=== PATIENT | female | born 1955 | race Caucasian/White ===

== ENCOUNTER 2019-10-15 08:27 | Observation (INO) ==
[~2019-10-15 08:27] MED LIST: Bacitracin 50,000 UNIT, Polymyxin B Sulfate 500,000 UNIT, Sodium Chloride IRRigation 1,... IR ONE
[2019-10-15] MEDS ORDERED: Ondansetron 4 MG/2 ML VIAL IVP ONE (08:56)
[2019-10-15] MEDS ORDERED: *HR* Promethazine 25 MG/ML VIAL IVP PRN (08:56)
[2019-10-15] MEDS ORDERED: *HR* HYDROmorphone PF 0.5 MG/0.5 ML SYRINGE IVP PRN (08:56)
[2019-10-15] MEDS ORDERED: *HR* OxyCODONE Immed Rel 5 MG TABLET PO PRN (08:56)
[2019-10-15] MEDS ORDERED: Acetaminophen IV 1,000 MG/100 ML INFUS..BTL IVPB ONE (08:57)
[2019-10-15] MEDS ORDERED: CeFAZolin Syr 2,000MG/20 ML 2,000 MG/20 ML SYRINGE IVPB ONE (09:17)
[2019-10-15] MEDS ORDERED: Ringers Solution, Lactated 1,000 ML IVC SCH (09:30)
[2019-10-15] MEDS ORDERED: *HR* Phenylephrine 10 MG/ML VIAL ONE (09:37)
[2019-10-15] MEDS ORDERED: *HR* Propofol 200 MG/20 ML VIAL IVP ONE (09:37)
[2019-10-15] MEDS ORDERED: *HR* Succinylcholine 200 MG/10 ML VIAL IVP ONE (09:37)
[2019-10-15] MEDS ORDERED: *HR* FentaNYL (PF) 100 MCG/2 ML VIAL ONE (09:37)
[2019-10-15] MEDS ORDERED: *HR* Midazolam HCl 2 MG/2 ML VIAL ONE (09:37)
[2019-10-15] MEDS ORDERED: *HR* Remifentanil 1 MG VIAL IVP ONE (09:37)
[2019-10-15] MEDS ORDERED: Lidocaine -MPF 2% 2 ML VIAL ONE ×2 (09:37)
[2019-10-15] MEDS ORDERED: *HR* Rocuronium Bromide 50 MG/5 ML VIAL ONE (09:39)
[2019-10-15] MEDS ORDERED: Acetaminophen IV 1,000 MG/100 ML INFUS..BTL ONE (10:12)
[2019-10-15] MEDS ORDERED: Ondansetron 4 MG/2 ML VIAL ONE (12:33)
[2019-10-15] MEDS ORDERED: Dexamethasone 4 MG/ML VIAL ONE (12:33)
[2019-10-15] MEDS ORDERED: Ondansetron 4 MG/2 ML VIAL IVP PRN (14:08)
[2019-10-15] MEDS ORDERED: Scopolamine Patch 1.5 MG PATCH.TD72 TD PRN (14:08)
[2019-10-15] MEDS ORDERED: Acetaminophen 325 MG TABLET PO PRN (14:08)
[2019-10-15] MEDS ORDERED: Naloxone 0.4 MG/ML INJ IVP PRN (14:08)
[2019-10-15] MEDS: *HR* HYDROcodone/Acet 5/325 mg TABLET PO PRN ×2 (16:00→23:50)
[2019-10-15] MEDS: Ringers Solution, Lactated 1,000 ML IVC SCH (16:00)
[2019-10-15] MEDS: ceFAZolin 2,000 MG in 0.9 % Sodium Chloride 100 ML IVPB SCH (17:06)
[2019-10-15] MEDS: carvediloL 6.25 MG TABLET PO SCH (17:08)
[2019-10-15] MEDS: Acetaminophen/Butalbital/CaffeineTABLET PO PRN (20:14)
[2019-10-16] MEDS: *HR* LORazepam 0.5 MG TABLET PO PRN ×3 (02:12→21:13)
[2019-10-16] MEDS: Ringers Solution, Lactated 1,000 ML IVC SCH (02:12)
[2019-10-16] MEDS: ceFAZolin 2,000 MG in 0.9 % Sodium Chloride 100 ML IVPB SCH (02:21)
[2019-10-16] MEDS: Acetaminophen/Butalbital/CaffeineTABLET PO PRN ×4 (02:24→21:13)
[2019-10-16] MEDS: carvediloL 6.25 MG TABLET PO SCH ×2 (08:41→16:41)
[2019-10-16] MEDS: *HR* OxyCODONE Immed Rel 5 MG TABLET PO PRN ×4 (08:41→21:05)
[2019-10-16] MEDS: Loratadine 10 MG TABLET PO SCH (08:42)
[2019-10-16] MEDS: lisinopriL 5 MG TABLET PO SCH (08:43)
[2019-10-17] MEDS: *HR* HYDROcodone/Acet 5/325 mg TABLET PO PRN ×2 (00:09→20:21)
[2019-10-17] MEDS: *HR* OxyCODONE Immed Rel 5 MG TABLET PO PRN ×4 (02:30→17:42)
[2019-10-17] MEDS: Acetaminophen/Butalbital/CaffeineTABLET PO PRN ×3 (05:24→17:45)
[2019-10-17] MEDS: carvediloL 6.25 MG TABLET PO SCH ×2 (07:38→17:42)
[2019-10-17] MEDS: lisinopriL 5 MG TABLET PO SCH (07:38)
[2019-10-17] MEDS: Loratadine 10 MG TABLET PO SCH (07:39)
[2019-10-17] MEDS: *HR* LORazepam 0.5 MG TABLET PO PRN (20:21)
[2019-10-18] MEDS: *HR* OxyCODONE Immed Rel 5 MG TABLET PO PRN ×2 (00:55→08:44)
[2019-10-18] MEDS: Acetaminophen/Butalbital/CaffeineTABLET PO PRN ×2 (00:56→08:45)
[2019-10-18] MEDS: *HR* HYDROcodone/Acet 5/325 mg TABLET PO PRN (03:57)
[2019-10-18] MEDS: lisinopriL 5 MG TABLET PO SCH (08:44)
[2019-10-18] MEDS: carvediloL 6.25 MG TABLET PO SCH (08:44)
[2019-10-18 11:43] VITALS: BP 107/73
== END 2019-10-18 16:31 | disposition home health service (06) ==
LOC: 3NENU 08:27 → SAMDAY 08:27 → 3NENU 14:19
PROVIDERS: ADMIT Orthopaedic Surgery Orthopaedic Surgery of the Spine; ATTEND Orthopaedic Surgery Orthopaedic Surgery of the Spine

== ENCOUNTER 2019-12-07 11:13 | Inpatient (IN) ==
[2019-12-07] MEDS ORDERED: Ondansetron 4 MG/2 ML VIAL IVP ONE (11:49)
[2019-12-07] MEDS ORDERED: *HR* HYDROmorphone (PF) 1 MG/ML SYRINGE IVP ONE ×2 (11:49→13:30)
[2019-12-07 12:54] LABS: Hematocrit 33.9 % (35.3-44.9); Hemoglobin 10.8 g/dL (11.5-15.4); Mean Corpuscular HGB Conc 31.9 g/dL (31.6-35.5); Mean Corpuscular Hemoglobin 31.7 pg (28.0-33.3); Mean Corpuscular Volume 99.4 fL (83.0-100.0); Mean Platelet Volume 10.2 fL (9.4-12.4); Platelet Count 201 K/mcL (140-400); Red Blood Count 3.41 M/mcL (3.82-4.97); Red Cell Distribution Width 13.3 % (11.5-14.5); White Blood Count 9.1 K/mcL (4.3-11.1)
[2019-12-07 13:01] LABS: Prothrombin Time 11.9 Seconds (9.4-12.1)
[2019-12-07 13:04] LABS: Activated Partial Thrombo Time 31.8 Seconds (26.0-36.0)
[2019-12-07 13:15] LABS: BUN/Creatinine Ratio 39 (6-26); Blood Urea Nitrogen 20 mg/dL (8-23); Calcium 7.7 mg/dL (8.6-10.3); Carbon Dioxide 17 mEq/L (23-29); Chloride 112 mEq/L (98-107); Glucose 108 mg/dL (70-105); Osmolality,Calculated 285 (280-300); Potassium 4.4 mEq/L (3.5-5.1); Sodium 136 mEq/L (136-145); Troponin I < 0.03 ng/mL (< 0.04); eGFR For African Americans > 60 (> 60); eGFR For Non-African Americans > 60 (> 60)
[2019-12-07] MEDS ORDERED: *HR* HYDROcodone/Acet 5/325 mg TABLET PO PRN (13:23)
[2019-12-07] MEDS ORDERED: Naloxone 0.4 MG/ML INJ IVP PRN (13:23)
[2019-12-07] MEDS ORDERED: *HR* LORazepam 0.5 MG TABLET PO PRN (13:26)
[2019-12-07] MEDS ORDERED: Ringers Solution, Lactated 1,000 ML IVC SCH (13:30)
[2019-12-07] MEDS: *HR* OxyCODONE Immed Rel 5 MG TABLET PO PRN (15:54)
[2019-12-07] MEDS: carvediloL 6.25 MG TABLET PO SCH (20:27)
[2019-12-07] MEDS: Ondansetron 4 MG/2 ML VIAL IVP PRN (21:03)
[2019-12-07] MEDS: traZODone 50 MG TABLET PO SCH (21:29)
[2019-12-07] MEDS ORDERED: 0.9 % Sodium Chloride 250 ML IVC PRN (22:54)
[2019-12-07] MEDS ORDERED: 0.9 % Sodium Chloride 250 ML IVC ONE (23:30)
[2019-12-07] MEDS ORDERED: 0.9 % Sodium Chloride 1,000 ML IVC SCH (23:45)
[2019-12-08] MEDS ORDERED: Ketorolac 30 MG/ML VIAL IVP ONE (01:39)
[2019-12-08 07:50] LABS: Basophils % 0.3 %; Eosinophils % 0.1 %; Hematocrit 26.3 % (35.3-44.9); Immature Granulocytes % 0.6 % (0-4); Lymphocytes % 10.7 %; Mean Corpuscular Hemoglobin 30.7 pg (28.0-33.3); Mean Corpuscular Volume 102.3 fL (83.0-100.0); Mean Platelet Volume 10.9 fL (9.4-12.4); Monocytes % 10.6 %; Nucleated Red Blood Cells 0.2 /100 WBC (0); Platelet Count 168 K/mcL (140-400); Red Blood Count 2.57 M/mcL (3.82-4.97); Red Cell Distribution Width 13.6 % (11.5-14.5); Segmented Neutrophils % 77.7 %
[2019-12-08 07:53] LABS: Hemoglobin 7.9 g/dL (11.5-15.4)
[2019-12-08 08:25] LABS: BUN/Creatinine Ratio 45 (6-26); Blood Urea Nitrogen 29 mg/dL (8-23); Calcium 7.5 mg/dL (8.6-10.3); Carbon Dioxide 15 mEq/L (23-29); Chloride 111 mEq/L (98-107); Glucose 103 mg/dL (70-105); Magnesium 1.8 mg/dL (1.6-2.6); Osmolality,Calculated 286 (280-300); Phosphorous 6.1 mg/dL (2.7-4.5); Potassium 4.4 mEq/L (3.5-5.1); Sodium 135 mEq/L (136-145); eGFR For African Americans > 60 (> 60); eGFR For Non-African Americans > 60 (> 60)
[2019-12-08] MEDS ORDERED: Ringers Solution, Lactated 1,000 ML IVC SCH (09:15)
[2019-12-08] MEDS ORDERED: Perflutren Lipid Microsphere 1.3 ML in 0.9 % Sodium Chloride 8.7 ML IVP PRN (09:45)
[2019-12-08] MEDS: carvediloL 6.25 MG TABLET PO SCH ×2 (13:01→17:19)
[2019-12-08] MEDS: Cholecalciferol (D-3) 1,000 UNIT (25MCG) TABLET PO SCH (13:05)
[2019-12-08 16:20] LABS: Bacteria,Urine Few per hpf (None-Few); Bilirubin,Urine Negative (Negative); Blood,Urine Moderate (Negative); Clarity,Urine Turbid (Clear); Color,Urine Yellow (Yellow); Glucose,Urine (UA) Normal (Normal); Hyaline Casts,Urine Many per lpf (None Seen); Ketones,Urine Trace mg/dL (Negative); Leukocyte Esterase,Urine Negative (Negative); Mucus,Urine Few per lpf (None-Few); Nitrite,Urine Negative (Negative); Protein,Urine 50 mg/dL (Neg-Trace); RBC,Urine TNTC per hpf (0-3); Specific Gravity,Urine 1.023 (1.010-1.025); Squamous Epithelial Cell,Urine Few per hpf (None-Few); Urobilinogen,Urine Normal (Normal); WBC,Urine 15-30 per hpf (0-3)
[2019-12-08] MEDS: *HR* OxyCODONE Immed Rel 5 MG TABLET PO PRN ×2 (17:28→23:50)
[2019-12-08 18:00] LABS: Hematocrit 21.9 % (35.3-44.9); Hemoglobin 6.7 g/dL (11.5-15.4)
[2019-12-08 20:19] LABS: Hematocrit 23.1 % (35.3-44.9); Hemoglobin 7.2 g/dL (11.5-15.4)
[2019-12-08] MEDS: traZODone 50 MG TABLET PO SCH (20:32)
[2019-12-09 01:56] LABS: Basophils % 0.4 %; Eosinophils # 0.1 K/mcL (0.0-0.6); Eosinophils % 0.7 %; Hematocrit 23.9 % (35.3-44.9); Hemoglobin 7.2 g/dL (11.5-15.4); Immature Granulocytes % 0.7 % (0-4); Lymphocytes # 0.9 K/mcL (0.6-4.6); Lymphocytes % 11.8 %; Mean Corpuscular HGB Conc 30.1 g/dL (31.6-35.5); Mean Corpuscular Hemoglobin 30.4 pg (28.0-33.3); Mean Corpuscular Volume 100.8 fL (83.0-100.0); Monocytes % 13.3 %; Neutrophils # 5.5 K/mcL (1.6-8.9); Platelet Count 132 K/mcL (140-400); Red Blood Count 2.37 M/mcL (3.82-4.97); Red Cell Distribution Width 13.9 % (11.5-14.5); Segmented Neutrophils % 73.1 %; White Blood Count 7.6 K/mcL (4.3-11.1)
[2019-12-09 02:14] LABS: BUN/Creatinine Ratio 39 (6-26); Blood Urea Nitrogen 26 mg/dL (8-23); Calcium 7.1 mg/dL (8.6-10.3); Carbon Dioxide 17 mEq/L (23-29); Chloride 111 mEq/L (98-107); Glucose 116 mg/dL (70-105); Magnesium 1.8 mg/dL (1.6-2.6); Osmolality,Calculated 288 (280-300); Phosphorous 4.5 mg/dL (2.7-4.5); Potassium 3.6 mEq/L (3.5-5.1); Sodium 136 mEq/L (136-145); eGFR For African Americans > 60 (> 60); eGFR For Non-African Americans > 60 (> 60)
[2019-12-09 02:15] LABS: % Iron Saturation 10 % (15-50); Iron 23 mcg/dL (50-170); Transferrin 163 mg/dL (203-362)
[2019-12-09] MEDS: carvediloL 6.25 MG TABLET PO SCH (07:49)
[2019-12-09] MEDS: Cholecalciferol (D-3) 1,000 UNIT (25MCG) TABLET PO SCH (09:24)
[2019-12-09] MEDS ORDERED: 0.9 % Sodium Chloride 250 ML ONE ×2 (10:47→14:57)
[2019-12-09] MEDS ORDERED: carvediloL 6.25 MG TABLET PO SCH (15:16)
[2019-12-09] MEDS ORDERED: Dexamethasone 4 MG/ML VIAL ONE ×2 (16:15→16:23)
[2019-12-09] MEDS ORDERED: *HR* FentaNYL (PF) 100 MCG/2 ML VIAL ONE ×2 (16:15→18:09)
[2019-12-09] MEDS ORDERED: *HR* Midazolam HCl 2 MG/2 ML VIAL ONE (16:15)
[2019-12-09] MEDS ORDERED: Lidocaine -MPF 2% 2 ML VIAL ONE (16:15)
[2019-12-09] MEDS ORDERED: Ondansetron 4 MG/2 ML VIAL ONE (16:15)
[2019-12-09] MEDS ORDERED: *HR* Propofol 200 MG/20 ML VIAL IVP ONE (16:15)
[2019-12-09] MEDS ORDERED: *HR* Succinylcholine 200 MG/10 ML VIAL IVP ONE (16:16)
[2019-12-09] MEDS ORDERED: Vancomycin 1,000 MG VIAL ONE (16:19)
[2019-12-09] MEDS ORDERED: Ethanol\\Acetic Acid\\Na Ace\\Ben 1,000 ML IRRIG.SOLN IR ONE (16:19)
[2019-12-09] MEDS ORDERED: Ropivacaine/PF 0.5% 30 ML VIAL ONE (16:21)
[2019-12-09] MEDS ORDERED: ROPIVACAINE/PF/NS 0.25% 1 EACH SYRINGE INTRAART ONE (16:21)
[2019-12-09] MEDS ORDERED: ceFAZolin 1,000 MG in Water for inj. (sterile) 10 ML IVP SCH (16:46)
[2019-12-09] MEDS ORDERED: *HR* Promethazine 25 MG/ML VIAL IVP PRN ×3 (16:48→20:49)
[2019-12-09] MEDS ORDERED: Ondansetron 4 MG/2 ML VIAL IVP ONE (16:48)
[2019-12-09] MEDS ORDERED: *HR* Labetalol 20 MG/4 ML SYRINGE IVP PRN ×2 (16:48→20:49)
[2019-12-09] MEDS ORDERED: *HR* HYDROmorphone PF 0.5 MG/0.5 ML SYRINGE IVP PRN (16:48)
[2019-12-09] MEDS ORDERED: ceFAZolin 2,000 MG in Water for inj. (sterile) 20 ML IVP ONE (17:31)
[2019-12-09] MEDS: Ondansetron 4 MG/2 ML VIAL IVP PRN (20:13)
[2019-12-09] MEDS ORDERED: *HR* LORazepam 0.5 MG TABLET PO PRN (20:49)
[2019-12-09] MEDS ORDERED: Ringers Solution, Lactated 1,000 ML IVC SCH (20:49)
[2019-12-09] MEDS ORDERED: Ondansetron 4 MG/2 ML VIAL IVP PRN ×2 (20:49)
[2019-12-09] MEDS ORDERED: MOM Conc 10 ML UD.LIQ PO PRN (20:49)
[2019-12-09] MEDS ORDERED: Sennosides 8.6 MG TABLET PO PRN (20:49)
[2019-12-09] MEDS ORDERED: Perflutren Lipid Microsphere 1.3 ML in 0.9 % Sodium Chloride 8.7 ML IVP PRN (20:49)
[2019-12-09] MEDS ORDERED: Naloxone 0.4 MG/ML INJ IVP PRN ×2 (20:49)
[2019-12-09] MEDS: traZODone 50 MG TABLET PO SCH (21:00)
[2019-12-09] MEDS: *HR* HYDROcodone/Acet 5/325 mg TABLET PO PRN (21:14)
[2019-12-09 22:40] LABS: Hematocrit 27.8 % (35.3-44.9)
[2019-12-10] MEDS: CeFAZolin 2 GM/120 ML BAG IVPB SCH ×2 (00:15→09:11)
[2019-12-10] MEDS ORDERED: 0.9 % Sodium Chloride 250 ML ONE ×2 (05:33→21:10)
[2019-12-10] MEDS: Cholecalciferol (D-3) 1,000 UNIT (25MCG) TABLET PO SCH (09:09)
[2019-12-10] MEDS: Multivit/Ca/Min/Fe/FA 1 TAB TABLET PO SCH (09:09)
[2019-12-10] MEDS: *HR* HYDROcodone/Acet 5/325 mg TABLET PO PRN ×2 (09:09→17:49)
[2019-12-10] MEDS: Ascorbic Acid 500 MG TABLET PO SCH ×2 (09:10→16:55)
[2019-12-10] MEDS: carvediloL 6.25 MG TABLET PO SCH ×3 (09:11→16:56)
[2019-12-10 09:40] LABS: Basophils % 0.1 %; Hematocrit 24.3 % (35.3-44.9); Hemoglobin 7.8 g/dL (11.5-15.4); Immature Granulocytes % 0.5 % (0-4); Immature Platelets 9.9 % (1.1-6.1); Lymphocytes # 0.5 K/mcL (0.6-4.6); Lymphocytes % 4.2 %; Mean Corpuscular HGB Conc 32.1 g/dL (31.6-35.5); Mean Corpuscular Hemoglobin 31.3 pg (28.0-33.3); Mean Corpuscular Volume 97.6 fL (83.0-100.0); Mean Platelet Volume 11.2 fL (9.4-12.4); Monocytes # 0.8 K/mcL (0.0-1.3); Monocytes % 6.6 %; Neutrophils # 10.6 K/mcL (1.6-8.9); Nucleated Red Blood Cells 0.3 /100 WBC (0); Platelet Count 120 K/mcL (140-400); Red Blood Count 2.49 M/mcL (3.82-4.97); Red Cell Distribution Width 13.7 % (11.5-14.5); Segmented Neutrophils % 88.6 %
[2019-12-10] MEDS ORDERED: 0.9 % Sodium Chloride 500 ML IVC SCH (10:15)
[2019-12-10] MEDS ORDERED: Isovue-370 500 ML BOTTLE IVP ONE (12:09)
[2019-12-10 16:16] LABS: Hemoglobin 6.4 g/dL (11.5-15.4)
[2019-12-10] MEDS ORDERED: 0.9 % Sodium Chloride 250 ML IVC SCH (18:15)
[2019-12-10] MEDS: *HR* OxyCODONE Immed Rel 5 MG TABLET PO PRN (21:11)
[2019-12-11] MEDS: traZODone 50 MG TABLET PO SCH ×2 (00:58→23:54)
[2019-12-11] MEDS: *HR* HYDROcodone/Acet 5/325 mg TABLET PO PRN (05:51)
[2019-12-11 07:05] LABS: Eosinophils % 0.2 %; Hematocrit 22.7 % (35.3-44.9); Hemoglobin 7.5 g/dL (11.5-15.4); Immature Granulocytes % 0.6 % (0-4); Lymphocytes # 0.6 K/mcL (0.6-4.6); Lymphocytes % 6.8 %; Mean Corpuscular Hemoglobin 30.6 pg (28.0-33.3); Mean Corpuscular Volume 92.7 fL (83.0-100.0); Mean Platelet Volume 11.1 fL (9.4-12.4); Monocytes # 0.9 K/mcL (0.0-1.3); Monocytes % 10.6 %; Neutrophils # 7.1 K/mcL (1.6-8.9); Nucleated Red Blood Cells 0.6 /100 WBC (0); Platelet Count 116 K/mcL (140-400); Red Blood Count 2.45 M/mcL (3.82-4.97); Red Cell Distribution Width 14.9 % (11.5-14.5); Segmented Neutrophils % 81.8 %; White Blood Count 8.7 K/mcL (4.3-11.1)
[2019-12-11 07:26] LABS: BUN/Creatinine Ratio 35 (6-26); Blood Urea Nitrogen 17 mg/dL (8-23); Calcium 7.3 mg/dL (8.6-10.3); Carbon Dioxide 23 mEq/L (23-29); Chloride 110 mEq/L (98-107); Glucose 119 mg/dL (70-105); Osmolality,Calculated 289 (280-300); Phosphorous 2.4 mg/dL (2.7-4.5); Potassium 3.6 mEq/L (3.5-5.1); Sodium 138 mEq/L (136-145); eGFR For African Americans > 60 (> 60); eGFR For Non-African Americans > 60 (> 60)
[2019-12-11] MEDS: Ascorbic Acid 500 MG TABLET PO SCH ×2 (08:11→19:35)
[2019-12-11] MEDS: Multivit/Ca/Min/Fe/FA 1 TAB TABLET PO SCH (08:11)
[2019-12-11] MEDS: Cholecalciferol (D-3) 1,000 UNIT (25MCG) TABLET PO SCH ×2 (08:12→14:26)
[2019-12-11] MEDS: carvediloL 6.25 MG TABLET PO SCH ×2 (08:12→19:03)
[2019-12-11] MEDS: *HR* OxyCODONE Immed Rel 5 MG TABLET PO PRN ×2 (11:35→19:02)
[2019-12-11 13:48] LABS: Hemoglobin 7.8 g/dL (11.5-15.4)
[2019-12-11] MEDS ORDERED: tiZANidine 4 MG TABLET PO ONE (20:14)
[2019-12-12 02:47] LABS: Eosinophils # 0.1 K/mcL (0.0-0.6); Eosinophils % 2.7 %; Hematocrit 20.8 % (35.3-44.9); Hemoglobin 6.7 g/dL (11.5-15.4); Immature Granulocytes % 0.4 % (0-4); Lymphocytes # 0.6 K/mcL (0.6-4.6); Lymphocytes % 12.2 %; Mean Corpuscular HGB Conc 32.2 g/dL (31.6-35.5); Mean Corpuscular Hemoglobin 31.8 pg (28.0-33.3); Mean Corpuscular Volume 98.6 fL (83.0-100.0); Monocytes # 0.3 K/mcL (0.0-1.3); Monocytes % 5.7 %; Neutrophils # 3.8 K/mcL (1.6-8.9); Platelet Count 101 K/mcL (140-400); Red Blood Count 2.11 M/mcL (3.82-4.97); Red Cell Distribution Width 15.9 % (11.5-14.5); White Blood Count 4.8 K/mcL (4.3-11.1)
[2019-12-12 03:05] LABS: % Iron Saturation 9 % (15-50); BUN/Creatinine Ratio 33 (6-26); Blood Urea Nitrogen 15 mg/dL (8-23); Calcium 7.4 mg/dL (8.6-10.3); Carbon Dioxide 23 mEq/L (23-29); Chloride 108 mEq/L (98-107); Glucose 95 mg/dL (70-105); Iron 18 mcg/dL (50-170); Osmolality,Calculated 283 (280-300); Potassium 4.2 mEq/L (3.5-5.1); Sodium 136 mEq/L (136-145); Transferrin 145 mg/dL (203-362); eGFR For African Americans > 60 (> 60); eGFR For Non-African Americans > 60 (> 60)
[2019-12-12 03:24] LABS: Ferritin 122 ng/mL (10-120)
[2019-12-12] MEDS ORDERED: Ketorolac 15 MG/ML VIAL IVP PRN (06:37)
[2019-12-12] MEDS: carvediloL 6.25 MG TABLET PO SCH (07:33)
[2019-12-12] MEDS: Multivit/Ca/Min/Fe/FA 1 TAB TABLET PO SCH (07:34)
[2019-12-12] MEDS: Ascorbic Acid 500 MG TABLET PO SCH ×2 (07:34→16:44)
[2019-12-12] MEDS: Cholecalciferol (D-3) 1,000 UNIT (25MCG) TABLET PO SCH (07:34)
[2019-12-12] MEDS: Acetaminophen IV 1,000 MG/100 ML BAG IVPB SCH ×4 (08:20→23:06)
[2019-12-12] MEDS ORDERED: tiZANidine 4 MG TABLET PO ONE (12:55)
[2019-12-12] MEDS ORDERED: Ringers Solution, Lactated 1,000 ML IVC SCH (15:00)
[2019-12-12 18:14] LABS: Hematocrit 30.2 % (35.3-44.9)
[2019-12-12 18:15] LABS: Hemoglobin 9.6 g/dL (11.5-15.4)
[2019-12-12] MEDS: traZODone 50 MG TABLET PO SCH (23:06)
[2019-12-13 05:30] LABS: Basophils % 0.4 %; Eosinophils # 0.3 K/mcL (0.0-0.6); Eosinophils % 6.4 %; Hematocrit 30.5 % (35.3-44.9); Hemoglobin 9.7 g/dL (11.5-15.4); Immature Granulocytes % 0.9 % (0-4); Lymphocytes # 0.6 K/mcL (0.6-4.6); Lymphocytes % 13.2 %; Mean Corpuscular HGB Conc 31.8 g/dL (31.6-35.5); Mean Corpuscular Hemoglobin 30.7 pg (28.0-33.3); Mean Corpuscular Volume 96.5 fL (83.0-100.0); Mean Platelet Volume 10.8 fL (9.4-12.4); Monocytes # 0.3 K/mcL (0.0-1.3); Monocytes % 7.3 %; Neutrophils # 3.3 K/mcL (1.6-8.9); Nucleated Red Blood Cells 0.7 /100 WBC (0); Platelet Count 114 K/mcL (140-400); Red Blood Count 3.16 M/mcL (3.82-4.97); Red Cell Distribution Width 15.4 % (11.5-14.5); Segmented Neutrophils % 71.8 %; White Blood Count 4.6 K/mcL (4.3-11.1)
[2019-12-13 05:47] LABS: BUN/Creatinine Ratio 43 (6-26); Blood Urea Nitrogen 15 mg/dL (8-23); Calcium 7.2 mg/dL (8.6-10.3); Carbon Dioxide 25 mEq/L (23-29); Chloride 109 mEq/L (98-107); Glucose 92 mg/dL (70-105); Osmolality,Calculated 288 (280-300); Potassium 3.8 mEq/L (3.5-5.1); Sodium 139 mEq/L (136-145); eGFR For African Americans > 60 (> 60); eGFR For Non-African Americans > 60 (> 60)
[2019-12-13] MEDS: Ascorbic Acid 500 MG TABLET PO SCH ×2 (07:18→17:54)
[2019-12-13] MEDS: Multivit/Ca/Min/Fe/FA 1 TAB TABLET PO SCH (07:18)
[2019-12-13] MEDS: Cholecalciferol (D-3) 1,000 UNIT (25MCG) TABLET PO SCH (07:18)
[2019-12-13] MEDS: Acetaminophen IV 1,000 MG/100 ML BAG IVPB SCH ×3 (07:19→23:16)
[2019-12-13] MEDS: *HR* OxyCODONE Immed Rel 5 MG TABLET PO PRN ×2 (09:52→17:54)
[2019-12-13] MEDS: traZODone 50 MG TABLET PO SCH (21:29)
[2019-12-14 06:03] LABS: Basophils % 0.4 %; Eosinophils # 0.2 K/mcL (0.0-0.6); Eosinophils % 3.7 %; Hematocrit 31.8 % (35.3-44.9); Hemoglobin 10.2 g/dL (11.5-15.4); Immature Granulocytes % 0.7 % (0-4); Lymphocytes # 0.5 K/mcL (0.6-4.6); Lymphocytes % 8.8 %; Mean Corpuscular HGB Conc 32.1 g/dL (31.6-35.5); Mean Corpuscular Hemoglobin 31.6 pg (28.0-33.3); Mean Corpuscular Volume 98.5 fL (83.0-100.0); Mean Platelet Volume 10.3 fL (9.4-12.4); Monocytes # 0.6 K/mcL (0.0-1.3); Monocytes % 10.6 %; Neutrophils # 4.1 K/mcL (1.6-8.9); Platelet Count 161 K/mcL (140-400); Red Blood Count 3.23 M/mcL (3.82-4.97); Red Cell Distribution Width 16.1 % (11.5-14.5); Segmented Neutrophils % 75.8 %; White Blood Count 5.4 K/mcL (4.3-11.1)
[2019-12-14 06:22] LABS: BUN/Creatinine Ratio 38 (6-26); Blood Urea Nitrogen 12 mg/dL (8-23); Calcium 7.2 mg/dL (8.6-10.3); Carbon Dioxide 26 mEq/L (23-29); Chloride 108 mEq/L (98-107); Glucose 96 mg/dL (70-105); Magnesium 1.8 mg/dL (1.6-2.6); Osmolality,Calculated 288 (280-300); Potassium 3.4 mEq/L (3.5-5.1); Sodium 139 mEq/L (136-145); eGFR For African Americans > 60 (> 60); eGFR For Non-African Americans > 60 (> 60)
[2019-12-14] MEDS: Acetaminophen IV 1,000 MG/100 ML BAG IVPB SCH (07:27)
[2019-12-14] MEDS: Cholecalciferol (D-3) 1,000 UNIT (25MCG) TABLET PO SCH (07:28)
[2019-12-14] MEDS: Multivit/Ca/Min/Fe/FA 1 TAB TABLET PO SCH (07:29)
[2019-12-14] MEDS: Ascorbic Acid 500 MG TABLET PO SCH (07:31)
[2019-12-14] MEDS ORDERED: Metoprolol XL (24 HR) Succ 25 MG TAB.ER.24H PO SCH (09:00)
[2019-12-14] MEDS: *HR* OxyCODONE Immed Rel 5 MG TABLET PO PRN ×2 (10:51→16:39)
[2019-12-14 12:01] VITALS: BP 134/84
== END 2019-12-14 17:05 | disposition home health service (06) | DRG 302 ==
LOC: 3NENU 11:13 → EMEROOARM 11:13 → 3NENU 16:04 → SUATTDRO 12-09 15:18
PROVIDERS: ADMIT Internal Medicine; ATTEND Pharmacist

== ENCOUNTER 2020-04-14 06:29 | Inpatient (IN) ==
[2020-04-14] MEDS: 0.9 % Sodium Chloride 1,000 ML IVC SCH (07:09)
[2020-04-14] MEDS ORDERED: *HR* FentaNYL (PF) 100 MCG/2 ML VIAL IVP PRN (07:26)
[2020-04-14] MEDS ORDERED: *HR* OxyCODONE Immed Rel 5 MG TABLET PO PRN (07:26)
[2020-04-14] MEDS ORDERED: *HR* Metoprolol 5 MG/5 ML VIAL IVP PRN (07:26)
[2020-04-14] MEDS ORDERED: Ondansetron 4 MG/2 ML VIAL IVP PRN (07:26)
[2020-04-14] MEDS ORDERED: Promethazine 6.25 MG in Water for inj. (sterile) 20 ML IVPB PRN (07:26)
[2020-04-14] MEDS ORDERED: Protamine Sulfate 50 MG/5 ML VIAL IVP ONE (07:29)
[2020-04-14] MEDS ORDERED: Heparin 1,000 UNITS/500 mL 2,000 ML ONE (07:30)
[2020-04-14] MEDS ORDERED: *HR* Heparin 10,000 UNIT/10 ML VIAL ONE (07:30)
[2020-04-14] MEDS ORDERED: 0.9 % Sodium Chloride 1,000 ML ONE (07:31)
[2020-04-14] MEDS ORDERED: ISOVUE-370 200 ML INFUS..BTL ONE (07:47)
[2020-04-14] MEDS ORDERED: *HR* Vasopressin 20 UNIT/ML VIAL ONE (07:58)
[2020-04-14] MEDS ORDERED: *HR* FentaNYL (PF) 100 MCG/2 ML VIAL ONE ×2 (08:10→09:58)
[2020-04-14] MEDS ORDERED: Perflutren Lipid Microsphere 1.3 ML in 0.9 % Sodium Chloride 8.7 ML IVP PRN (09:58)
[2020-04-14] MEDS ORDERED: *HR* Propofol 200 MG/20 ML VIAL IVP ONE (10:53)
[2020-04-14] MEDS ORDERED: *HR* Water for inj. (sterile) Vial IV ONE (10:53)
[2020-04-14] MEDS ORDERED: *HR* Phenylephrine 10 MG/ML VIAL IVC ONE (10:53)
[2020-04-14] MEDS ORDERED: Ondansetron 4 MG/2 ML VIAL IVP ONE (10:53)
[2020-04-14] MEDS ORDERED: Lidocaine -MPF 2% 5 ML VIAL SQ ONE (10:53)
[2020-04-14] MEDS ORDERED: Lidocaine -MPF 4% 5 ML AMPUL TP ONE (10:53)
[2020-04-14] MEDS ORDERED: *HR* Succinylcholine 200 MG/10 ML VIAL IVP ONE (10:53)
[2020-04-14] MEDS ORDERED: *HR* Rocuronium Bromide 50 MG/5 ML VIAL IVP ONE (10:53)
[2020-04-14] MEDS ORDERED: Ondansetron ODT 4 MG TAB.RAPDIS PO SCH (13:00)
[2020-04-14] MEDS ORDERED: Ondansetron ODT 4 MG TAB.RAPDIS PO PRN (15:21)
[2020-04-14] MEDS ORDERED: carvediloL 6.25 MG TABLET PO SCH (17:00)
[2020-04-14] MEDS: *HR* OxyCODONE Immed Rel 5 MG TABLET PO PRN (17:10)
[2020-04-14] MEDS: traZODone 50 MG TABLET PO PRN (20:30)
[2020-04-14] MEDS ORDERED: Apixaban 5 MG TABLET PO SCH (21:00)
[2020-04-14] MEDS ORDERED: *HR* LORazepam 0.5 MG TABLET PO SCH (21:00)
[2020-04-15] MEDS: 0.9 % Sodium Chloride 1,000 ML IVC SCH (04:07)
[2020-04-15 04:45] LABS: Basophils % 0.4 %; Eosinophils % 0.3 %; Hematocrit 30.9 % (35.3-44.9); Immature Granulocytes % 0.3 % (0-4); Lymphocytes # 0.7 K/mcL (0.6-4.6); Lymphocytes % 10.5 %; Mean Corpuscular HGB Conc 30.7 g/dL (31.6-35.5); Mean Corpuscular Hemoglobin 31.4 pg (28.0-33.3); Mean Platelet Volume 10.3 fL (9.4-12.4); Monocytes # 0.7 K/mcL (0.0-1.3); Monocytes % 10.2 %; Neutrophils # 5.3 K/mcL (1.6-8.9); Platelet Count 201 K/mcL (140-400); Red Blood Count 3.03 M/mcL (3.82-4.97); Red Cell Distribution Width 13.2 % (11.5-14.5); Segmented Neutrophils % 78.3 %
[2020-04-15 04:46] LABS: Hemoglobin 9.5 g/dL (11.5-15.4); White Blood Count 6.8 K/mcL (4.3-11.1)
[2020-04-15 04:53] LABS: INR 1.3; Prothrombin Time 15.1 Seconds (9.4-12.1)
[2020-04-15 05:04] LABS: BUN/Creatinine Ratio 21 (6-26); Blood Urea Nitrogen 12 mg/dL (8-23); Calcium 8.2 mg/dL (8.6-10.3); Carbon Dioxide 23 mEq/L (23-29); Chloride 110 mEq/L (98-107); Glucose 118 mg/dL (70-105); Osmolality,Calculated 289 (280-300); Potassium 4.5 mEq/L (3.5-5.1); Sodium 139 mEq/L (136-145); eGFR For African Americans > 60 (> 60); eGFR For Non-African Americans > 60 (> 60)
[2020-04-15 08:34] LABS: Hematocrit 32.8 % (35.3-44.9); Hemoglobin 10.1 g/dL (11.5-15.4)
[2020-04-15] MEDS: BuPROPion SR (12 HR) 150 MG TABLET PO SCH (08:45)
[2020-04-15] MEDS: Aspirin Enteric Coated 81 MG Tablet PO SCH (08:45)
[2020-04-15] MEDS: carvediloL 6.25 MG TABLET PO SCH ×2 (09:09→15:55)
[2020-04-15] MEDS ORDERED: Perflutren Lipid Microsphere 1.3 ML in 0.9 % Sodium Chloride 8.7 ML IVP PRN (13:29)
[2020-04-15] MEDS ORDERED: 0.9 % Sodium Chloride 1,000 ML IVC SCH (13:30)
[2020-04-15] MEDS: *HR* LORazepam 0.5 MG TABLET PO PRN (16:00)
[2020-04-15] MEDS: *HR* OxyCODONE Immed Rel 5 MG TABLET PO PRN (20:05)
[2020-04-15] MEDS: traZODone 50 MG TABLET PO PRN (20:42)
[2020-04-16] MEDS: *HR* OxyCODONE Immed Rel 5 MG TABLET PO PRN (05:48)
[2020-04-16 06:02] LABS: Hematocrit 26.1 % (35.3-44.9); Hemoglobin 7.9 g/dL (11.5-15.4)
[2020-04-16] MEDS: carvediloL 6.25 MG TABLET PO SCH (09:43)
[2020-04-16] MEDS: Aspirin Enteric Coated 81 MG Tablet PO SCH (09:44)
[2020-04-16] MEDS: BuPROPion SR (12 HR) 150 MG TABLET PO SCH (09:44)
[2020-04-16] MEDS: *HR* LORazepam 0.5 MG TABLET PO PRN (11:54)
[2020-04-16 11:57] VITALS: BP 113/60
[2020-04-16 12:54] LABS: Hematocrit 28.2 % (35.3-44.9); Hemoglobin 8.5 g/dL (11.5-15.4)
[2020-04-16] MEDS ORDERED: FLU Vac QV 20-21 (6Month+)/PF 0.5 ML SYRINGE IM ONE (15:02)
== END 2020-04-16 15:45 | disposition home or self-care (01) | DRG 175 ==
LOC: INVDIALAB 06:29 → ICNU 11:38
PROVIDERS: ADMIT Internal Medicine Cardiovascular Disease; ATTEND Internal Medicine Cardiovascular Disease